=== PATIENT | female | born 1975 | race African-American/Black ===

== ENCOUNTER 2020-08-11 08:45 | Emergency (ER) | payer OTHER ==
[~2020-08-11] VITALS: Ht 172.7 cm; Wt 68.2 kg
[2020-08-11 08:56] VITALS: BP 117/78
[2020-08-11] MEDS ORDERED: DiphenhydrAMINE HCL 50 MG CAPSULE PO ONE (09:00)
== END 2020-08-11 09:28 | disposition home or self-care (01) ==
LOC: EMS 08:48
DX: S40.862A Insect bite (nonvenomous) of left upper arm, initial encounter (principal); W57.XXXA Bitten or stung by nonvenomous insect and other nonvenomous arthropods, initial encounter; Y93.89 Activity, other specified; Y92.89 Other specified places as the place of occurrence of the external cause; Y99.8 Other external cause status

== ENCOUNTER 2021-07-25 20:25 | Emergency (ER) | payer OTHER ==
[~2021-07-25] VITALS: Ht 172.7 cm; Wt 73.2 kg
[2021-07-25 21:08] VITALS: BP 119/64
[2021-07-25] MEDS ORDERED: SILVER SULFADIAZINE 1% 25 GM CREAM TP ONE (21:15)
[2021-07-25] MEDS ORDERED: HYDROCODONE/ACETAMINOPHEN 5-325 MG TABLET PO ONE (21:15)
== END 2021-07-25 22:15 | disposition home or self-care (01) ==
LOC: EMS 21:21
DX: T23.221A Burn of second degree of single right finger (nail) except thumb, initial encounter (principal); F12.90 Cannabis use, unspecified, uncomplicated; X10.2XXA Contact with fats and cooking oils, initial encounter; Y93.89 Activity, other specified; Y92.89 Other specified places as the place of occurrence of the external cause; Y99.8 Other external cause status
CPT/HCPCS: 16020; 99283